=== PATIENT | female | born 1990 | race Caucasian/White ===

== ENCOUNTER 2018-01-02 02:19 | Emergency (ER) | payer OTHER ==
[~2018-01-02] VITALS: Ht 160 cm; Wt 47.6 kg
[~2018-01-02 02:19] MED LIST: AMOX500 PO; CIPR500 PO; FLUSAL1005 IH; FLUSAL2505 IH; IBUP600 PO; IBUP800 PO; METPHE10 PO; METPHE27ER PO; MONT10T PO; NEOPOLHCSU LEFTEAR; PROM25 PO; RXHYDACE PO; RXPROM25 PO; TRAZ50 PO; [UNRECOGNIZED DRUG - REMARK]
== END 2018-01-02 03:40 | disposition home or self-care (01) ==
LOC: ER 02:19
DX: S90.31XA Contusion of right foot, initial encounter (principal); F17.200 Nicotine dependence, unspecified, uncomplicated; Z91.012 Allergy to eggs; Z88.2 Allergy status to sulfonamides; W22.8XXA Striking against or struck by other objects, initial encounter
CPT/HCPCS: 73610; 99283-25

== ENCOUNTER 2018-12-25 00:36 | Emergency (ER) | payer OTHER ==
[~2018-12-25] VITALS: Ht 160 cm; Wt 45.4 kg
[~2018-12-25 00:36] MED LIST changes: +ALBU90OI6 INH; +Advair Hfa 230-12 GM INH; +IBUP400 PO
== END 2018-12-25 01:31 | disposition home or self-care (01) ==
LOC: ER 00:36
DX: T22.011A Burn of unspecified degree of right forearm, initial encounter (principal); T31.0 Burns involving less than 10% of body surface; X08.8XXA Exposure to other specified smoke, fire and flames, initial encounter; Z88.2 Allergy status to sulfonamides; F17.210 Nicotine dependence, cigarettes, uncomplicated
CPT/HCPCS: 99283

== ENCOUNTER 2019-06-30 22:20 | Emergency (ER) | payer OTHER ==
[~2019-06-30] VITALS: Ht 160 cm; Wt 45.4 kg
[2019-07-01] MEDS ORDERED: IBUP600 PO (00:13)
== END 2019-07-01 00:39 | disposition home or self-care (01) ==
LOC: ER 22:20
DX: S09.90XA Unspecified injury of head, initial encounter (principal); F17.210 Nicotine dependence, cigarettes, uncomplicated; Z88.2 Allergy status to sulfonamides; W22.8XXA Striking against or struck by other objects, initial encounter
CPT/HCPCS: 99283; Q0163